=== PATIENT | male | born 1955 | race Caucasian/White ===

== ENCOUNTER 2016-03-18 09:45 | Outpatient (CLI) | payer BC | END 2016-03-18 09:46 | disposition home or self-care (01) | DX: I48.91 Unspecified atrial fibrillation (principal); E11.9 Type 2 diabetes mellitus without complications; E87.1 Hypo-osmolality and hyponatremia; E55.9 Vitamin D deficiency, unspecified; E29.1 Testicular hypofunction; D64.9 Anemia, unspecified; E78.5 Hyperlipidemia, unspecified; I10 Essential (primary) hypertension; E03.9 Hypothyroidism, unspecified; Z12.5 Encounter for screening for malignant neoplasm of prostate ==

== ENCOUNTER 2016-05-21 17:11 | Outpatient (CLI) | payer BC | END 2016-05-21 17:12 | disposition home or self-care (01) | DX: M79.604 Pain in right leg (principal) ==

== ENCOUNTER 2016-06-29 14:05 | Outpatient (CLI) | payer BC | END 2016-06-29 14:06 | disposition home or self-care (01) | DX: G47.33 Obstructive sleep apnea (adult) (pediatric) (principal) ==

== ENCOUNTER 2016-07-31 22:21 | Outpatient (CLI) | payer BC | END 2016-07-31 22:22 | disposition home or self-care (01) | LOC: SC 22:21 | PROVIDERS: ATTEND Internal Medicine Pulmonary Disease | DX: G47.33 Obstructive sleep apnea (adult) (pediatric) (principal); G47.61 Periodic limb movement disorder; Z68.43 Body mass index [BMI] 50.0-59.9, adult | CPT/HCPCS: 95811 ==

== ENCOUNTER 2016-08-18 13:33 | Outpatient (CLI) | payer BC | END 2016-08-18 13:34 | disposition home or self-care (01) | LOC: SC 13:33 | PROVIDERS: ATTEND Internal Medicine Pulmonary Disease | DX: Z53.9 Procedure and treatment not carried out, unspecified reason (principal) ==

== ENCOUNTER 2016-09-07 10:30 | Outpatient (CLI) | payer BC | END 2016-09-07 10:31 | disposition home or self-care (01) | DX: G47.33 Obstructive sleep apnea (adult) (pediatric) (principal) ==

== ENCOUNTER 2016-09-15 12:53 | Outpatient (CLI) | payer BC ==
[2016-09-15 19:01] LABS: ALBUMIN/GLOBULIN RATIO 1.1 (1.0-2.2); BILIRUBIN,TOTAL 1.1 mg/dL (0.2-1.0); BUN - BLOOD UREA NITROGEN 9 mg/dL (6-20); CALCIUM 9.3 mg/dL (8.5-10.3); CARBON DIOXIDE - CO2 29 mmol/L (21-32); CHLORIDE 98 mmol/L (101-111); CHOL/HDL RATIO 3.4 (<5.0); CHOLESTEROL 160 mg/dL; GFR - MDRD 76 (>89); GLUCOSE 199 mg/dL (70-100); HDL CHOLESTEROL 47 mg/dL; LDL/HDL RATIO 1.2 (<3.6); POTASSIUM 4.5 mmol/L (3.5-5.0); SODIUM 134 mmol/L (135-145); TOTAL PROTEIN 7.8 g/dL (6.7-8.2); TRIGLYCERIDES 283 mg/dL; VLDL CHOLESTEROL 57 mg/dL
[2016-09-15 19:29] LABS: BASOPHILS # (AUTO) 0.1 10^3/uL (0.0-0.1); BASOPHILS % (AUTO) 0.8 %; EOSINOPHILS # (AUTO) 0.1 10^3/uL (0.0-0.7); EOSINOPHILS % (AUTO) 0.8 %; HCT - HEMATOCRIT 55.8 % (42.0-52.0); HGB - HEMOGLOBIN 17.9 g/dL (14.0-18.0); LYMPHOCYTES # (AUTO) 2.1 10^3/uL (1.5-3.5); LYMPHOCYTES % (AUTO) 25.2 %; MEAN CORPUSCULAR HEMOGLOBIN 27.4 pg (27.0-31.0); MEAN CORPUSCULAR VOLUME 85.5 fL (80.0-94.0); MEAN PLATELET VOLUME 7.8 fL (7.4-11.4); MONOCYTES # (AUTO) 0.7 10^3/uL (0.0-1.0); MONOCYTES % (AUTO) 8.1 %; NEUTROPHILS # (AUTO) 5.5 10^3/uL (1.5-6.6); NEUTROPHILS % (AUTO) 65.1 %; NUCLEATED RED BLOOD CELLS AUTO 0.1 /100WBC; RED BLOOD COUNT 6.53 10^6/uL (4.70-6.10); RED CELL DISTRIBUTION WIDTH 16.1 % (12.0-15.0); UNCORRECTED WHITE BLOOD COUNT 8.5 x10^3/uL; WHITE BLOOD COUNT 8.5 x10^3/uL (4.8-10.8)
[2016-09-15 19:32] LABS: BILIRUBIN,URINE NEGATIVE (NEGATIVE); PH,URINE 5.5 PH (5.0-7.5)
[2016-09-15 19:43] LABS: UA w/ MICROSCOPIC CHARGE YES
[2016-09-15 19:47] LABS: INR 1.2 (0.8-1.2); PT - PROTHROMBIN TIME 13.4 secs (9.9-12.6)
[2016-09-15 20:38] LABS: PARTIAL THROMBOPLASTIN TIME 49.1 secs (24.9-33.3)
[2016-09-15 20:42] LABS: UR CULTURE IF IND NOT INDICATED; WBC,URINE 0-3 /HPF (0-3)
[2016-09-15 21:11] LABS: HEMOGLOBIN A1C 1.15 g/dL
== END 2016-09-15 12:54 | disposition home or self-care (01) ==
LOC: LAB.F 12:53
PROVIDERS: ATTEND Orthopaedic Surgery
DX: Z01.818 Encounter for other preprocedural examination (principal); N39.0 Urinary tract infection, site not specified; R73.09 Other abnormal glucose; Z79.4 Long term (current) use of insulin; E11.9 Type 2 diabetes mellitus without complications; D64.9 Anemia, unspecified; E78.5 Hyperlipidemia, unspecified; I10 Essential (primary) hypertension
CPT/HCPCS: 36415; 80053; 80061; 81001; 81003; 83036; 84443; 85025; 85610; 85730; 87086

== ENCOUNTER 2016-12-28 15:08 | Outpatient (CLI) | payer BC ==
[2016-12-28 17:43] LABS: BASOPHILS % (AUTO) 0.5 %; EOSINOPHILS # (AUTO) 0.1 10^3/uL (0.0-0.7); EOSINOPHILS % (AUTO) 0.6 %; HCT - HEMATOCRIT 56.8 % (42.0-52.0); HGB - HEMOGLOBIN 18.2 g/dL (14.0-18.0); LYMPHOCYTES # (AUTO) 2.2 10^3/uL (1.5-3.5); LYMPHOCYTES % (AUTO) 25.3 %; MEAN CORPUSCULAR HEMOGLOBIN 27.5 pg (27.0-31.0); MEAN CORPUSCULAR HGB CONC 32.1 g/dL (32.0-36.0); MEAN CORPUSCULAR VOLUME 85.8 fL (80.0-94.0); MEAN PLATELET VOLUME 7.9 fL (7.4-11.4); MONOCYTES # (AUTO) 0.9 10^3/uL (0.0-1.0); MONOCYTES % (AUTO) 9.7 %; NEUTROPHILS # (AUTO) 5.7 10^3/uL (1.5-6.6); NEUTROPHILS % (AUTO) 63.9 %; NUCLEATED RED BLOOD CELLS AUTO 0.1 /100WBC; RED BLOOD COUNT 6.62 10^6/uL (4.70-6.10); RED CELL DISTRIBUTION WIDTH 15.9 % (12.0-15.0); UNCORRECTED WHITE BLOOD COUNT 8.9 x10^3/uL; WHITE BLOOD COUNT 8.9 x10^3/uL (4.8-10.8)
[2016-12-28 18:04] LABS: HEMOGLOBIN A1C 1.14 g/dL
[2016-12-28 18:09] LABS: ALBUMIN/GLOBULIN RATIO 1.1 (1.0-2.2); BILIRUBIN,TOTAL 1.1 mg/dL (0.2-1.0); BUN - BLOOD UREA NITROGEN 12 mg/dL (6-20); CALCIUM 9.2 mg/dL (8.5-10.3); CARBON DIOXIDE - CO2 25 mmol/L (21-32); CHLORIDE 99 mmol/L (101-111); CHOL/HDL RATIO 3.6 (<5.0); CHOLESTEROL 150 mg/dL; GFR - MDRD 76 (>89); GLUCOSE 171 mg/dL (70-100); HDL CHOLESTEROL 42 mg/dL; LDL/HDL RATIO 1.2 (<3.6); POTASSIUM 4.2 mmol/L (3.5-5.0); SODIUM 133 mmol/L (135-145); TOTAL PROTEIN 8.2 g/dL (6.7-8.2); TRIGLYCERIDES 292 mg/dL; VLDL CHOLESTEROL 58 mg/dL
[2017-01-03 03:12] LABS: TEST RESULT REPORT
== END 2016-12-28 15:09 | disposition home or self-care (01) ==
LOC: LAB.F 15:08
PROVIDERS: ATTEND Physician Assistant Medical
DX: Z00.00 Encounter for general adult medical examination without abnormal findings (principal); I50.9 Heart failure, unspecified; E78.5 Hyperlipidemia, unspecified; E11.21 Type 2 diabetes mellitus with diabetic nephropathy; Z12.5 Encounter for screening for malignant neoplasm of prostate; E29.1 Testicular hypofunction; D64.9 Anemia, unspecified
CPT/HCPCS: 36415; 80053; 80061; 81599; 82043; 82570; 83036; 83880; 84153; 84403; 85025

== ENCOUNTER 2017-09-10 08:00 | Outpatient (CLI) | payer BC, OTHER | END 2017-09-10 08:01 | disposition home or self-care (01) | LOC: LAB.R 08:00 | PROVIDERS: ATTEND Podiatrist | DX: E11.622 Type 2 diabetes mellitus with other skin ulcer (principal) | CPT/HCPCS: 87070; 87077; 87181; 87205 ==

== ENCOUNTER 2017-10-06 08:00 | Outpatient (CLI) | payer OTHER ==
[2017-10-06 17:10] LABS: MUDS CUTOFF CONCENTRATIONS CUTOFF CONC BELOW:
[2017-10-06 17:35] LABS: AMPHETAMINE SCREEN,URINE NEGATIVE (NEGATIVE); BENZODIAZEPINES SCREEN, URINE NEGATIVE (NEGATIVE); COCAINE SCREEN URINE NEGATIVE (NEGATIVE); METHADONE SCREEN, URINE NEGATIVE (NEGATIVE); METHAMPHETAMINES SCREEN, URINE NEGATIVE (NEGATIVE); OPIATE SCREEN, URINE POSITIVE (NEGATIVE); TRICYCLIC ANTIDEPRESSANT,URINE NEGATIVE (NEGATIVE)
[2017-10-06 17:36] LABS: OXYCODONE SCREEN, URINE POSITIVE (NEGATIVE); PROPOXYPHENE SCREEN, URINE NEGATIVE (NEGATIVE)
== END 2017-10-06 08:01 | disposition home or self-care (01) ==
LOC: LAB.R 08:00
PROVIDERS: ATTEND Physician Assistant Medical
DX: G89.29 Other chronic pain (principal)
CPT/HCPCS: 80306

== ENCOUNTER 2018-09-07 12:57 | Outpatient (CLI) | payer BC ==
[2018-09-07 17:22] LABS: BASOPHILS % (AUTO) 0.5 %; EOSINOPHILS # (AUTO) 0.1 10^3/uL (0.0-0.7); EOSINOPHILS % (AUTO) 1.5 %; HGB - HEMOGLOBIN 15.6 g/dL (14.0-18.0); LYMPHOCYTES # (AUTO) 2.2 10^3/uL (1.5-3.5); LYMPHOCYTES % (AUTO) 27.2 %; MEAN CORPUSCULAR HEMOGLOBIN 28.8 pg (27.0-31.0); MEAN CORPUSCULAR HGB CONC 32.3 g/dL (32.0-36.0); MEAN CORPUSCULAR VOLUME 89.1 fL (80.0-94.0); MEAN PLATELET VOLUME 9.7 fL (7.4-11.4); MONOCYTES # (AUTO) 0.8 10^3/uL (0.0-1.0); MONOCYTES % (AUTO) 9.3 %; NEUTROPHILS # (AUTO) 4.9 10^3/uL (1.5-6.6); NEUTROPHILS % (AUTO) 60.9 %; PLT - PLATELET COUNT 244 10^3/uL (130-450); RED BLOOD COUNT 5.42 10^6/uL (4.70-6.10); RED CELL DISTRIBUTION WIDTH 13.8 % (12.0-15.0); WHITE BLOOD COUNT 8.1 x10^3/uL (4.8-10.8)
[2018-09-07 17:34] LABS: ALBUMIN 3.9 g/dL (3.2-5.5); CALCIUM 9.2 mg/dL (8.5-10.3); CREATININE 0.7 mg/dL (0.6-1.2); CRP - C-REACTIVE PROTEIN 1.8 mg/dL (0-1.0); PHOSPHORUS 3.6 mg/dL (2.5-4.6); TOTAL PROTEIN 7.7 g/dL (6.7-8.2)
== END 2018-09-07 12:58 | disposition home or self-care (01) ==
LOC: LAB.S 12:57
PROVIDERS: ATTEND Orthopaedic Surgery Foot and Ankle Surgery
DX: Z01.818 Encounter for other preprocedural examination (principal); M79.674 Pain in right toe(s)
CPT/HCPCS: 36415; 80053; 80069; 85025; 85651; 86140

== ENCOUNTER 2020-10-23 11:00 | Outpatient (CLI) | payer OTHER | END 2020-10-23 23:59 | disposition home or self-care (01) | LOC: LAB 11:00 | PROVIDERS: ATTEND Podiatrist | DX: E11.622 Type 2 diabetes mellitus with other skin ulcer (principal) | CPT/HCPCS: 87070; 87077; 87181; 87205 ==

== ENCOUNTER 2021-04-21 08:00 | Outpatient (CLI) | payer OTHER | END 2021-04-21 23:59 | LOC: LAB 08:00 | PROVIDERS: ATTEND Internal Medicine | DX: L03.031 Cellulitis of right toe (principal) | CPT/HCPCS: 87070; 87077; 87181; 87205 ==

== ENCOUNTER 2021-05-07 08:00 | Outpatient (CLI) | payer OTHER ==
--- NOTE | 2021-05-08 01:51 | XRAY Report ---
PROCEDURE: Foot 3 View RT INDICATIONS: OSTEOMYELITIS TECHNIQUE: 3 views of the foot were acquired. COMPARISON: Right foot radiographs 07/02/2009 FINDINGS: Bones: No acute fractures or dislocations. No suspicious bony lesions. No focal cortical destructi on is seen to suggest osteomyelitis. Moderate hallux valgus is seen with degenerative changes of the first metatarsophalangeal joint. There is also mild valgus angulation of the first interphalangeal brock int. Degenerative changes are seen throughout the interphalangeal joints of the toes. A posterior timbo caneal enthesophyte is seen. Findings are significantly worse when compared to a remote prior study f rom 2009. Soft tissues: Skin irregularity at the medial aspect of the foot adjacent to the first metatarsophal angeal joint is consistent with a soft tissue ulcer. Mild diffuse soft tissue edema is seen in the fo refoot. IMPRESSION: Soft tissue ulcer at the medial aspect of the first metatarsophalangeal joint without radiographic si gns of osteomyelitis. If there is continued clinical concern, MRI may be obtained for further evaluat ion. Reviewed by: Kofi Bartholomew MD on 05/08/2021 1:51 AM PST Approved by: Kofi Bartholomew MD on 05/08/2021 1:51 AM PST Station ID: [id number]
== END 2021-05-07 23:59 | disposition home or self-care (01) ==
LOC: DI.S 08:00
PROVIDERS: ATTEND Family Medicine
DX: E11.621 Type 2 diabetes mellitus with foot ulcer (principal)

== ENCOUNTER 2021-05-07 18:12 | Outpatient (CLI) | payer OTHER ==
[2021-05-07 20:07] LABS: BASOPHILS % (AUTO) 0.3 %; EOSINOPHILS % (AUTO) 0.3 %; HCT - HEMATOCRIT 37.3 % (42.0-52.0); HGB - HEMOGLOBIN 11.8 g/dL (14.0-18.0); LYMPHOCYTES # (AUTO) 1.2 10^3/uL (1.5-3.5); LYMPHOCYTES % (AUTO) 15.4 %; MEAN CORPUSCULAR HEMOGLOBIN 26.5 pg (27.0-31.0); MEAN CORPUSCULAR HGB CONC 31.6 g/dL (32.0-36.0); MEAN CORPUSCULAR VOLUME 83.8 fL (80.0-94.0); MEAN PLATELET VOLUME 8.7 fL (7.4-11.4); MONOCYTES # (AUTO) 0.7 10^3/uL (0.0-1.0); MONOCYTES % (AUTO) 8.4 %; NEUTROPHILS % (AUTO) 75.1 %; PLT - PLATELET COUNT 309 10^3/uL (130-450); RED BLOOD COUNT 4.45 10^6/uL (4.70-6.10)
== END 2021-05-07 18:13 | disposition home or self-care (01) ==
LOC: LAB.S 18:12
PROVIDERS: ATTEND Family Medicine
DX: E11.621 Type 2 diabetes mellitus with foot ulcer (principal); L08.9 Local infection of the skin and subcutaneous tissue, unspecified
CPT/HCPCS: 36415; 80053; 83880; 85025; 85651; 86140

== ENCOUNTER 2021-05-20 15:29 | Outpatient (CLI) | payer OTHER ==
[2021-05-20 15:39] LABS: BASOPHILS # (AUTO) 0.1 10^3/uL (0.0-0.1); BASOPHILS % (AUTO) 0.7 %; EOSINOPHILS # (AUTO) 0.1 10^3/uL (0.0-0.7); EOSINOPHILS % (AUTO) 1.3 %; HCT - HEMATOCRIT 36.2 % (42.0-52.0); HGB - HEMOGLOBIN 11.5 g/dL (14.0-18.0); LYMPHOCYTES # (AUTO) 1.1 10^3/uL (1.5-3.5); LYMPHOCYTES % (AUTO) 15.7 %; MEAN CORPUSCULAR HEMOGLOBIN 26.6 pg (27.0-31.0); MEAN CORPUSCULAR HGB CONC 31.8 g/dL (32.0-36.0); MEAN CORPUSCULAR VOLUME 83.8 fL (80.0-94.0); MEAN PLATELET VOLUME 8.1 fL (7.4-11.4); MONOCYTES # (AUTO) 0.9 10^3/uL (0.0-1.0); MONOCYTES % (AUTO) 12.8 %; NEUTROPHILS # (AUTO) 4.8 10^3/uL (1.5-6.6); NEUTROPHILS % (AUTO) 68.5 %; PLT - PLATELET COUNT 269 10^3/uL (130-450); RED BLOOD COUNT 4.32 10^6/uL (4.70-6.10); RED CELL DISTRIBUTION WIDTH 17.8 % (12.0-15.0); WHITE BLOOD COUNT 7.1 x10^3/uL (4.8-10.8)
[2021-05-20 16:02] LABS: ALBUMIN 2.8 g/dL (3.2-5.5); ALBUMIN/GLOBULIN RATIO 0.7 (1.0-2.2); BILIRUBIN,TOTAL 0.8 mg/dL (0.2-1.0); CALCIUM 8.4 mg/dL (8.5-10.3); CREATININE 0.6 mg/dL (0.6-1.2); CRP - C-REACTIVE PROTEIN 9.9 mg/dL (0-1.0); POTASSIUM 4.9 mmol/L (3.5-5.0); TOTAL PROTEIN 7.1 g/dL (6.7-8.2)
== END 2021-05-20 15:30 | disposition home or self-care (01) ==
LOC: LAB.R 15:29
PROVIDERS: ATTEND Internal Medicine Infectious Disease
DX: M86.9 Osteomyelitis, unspecified (principal)
CPT/HCPCS: 80053; 85025; 86140

== ENCOUNTER 2021-06-03 14:54 | Outpatient (CLI) | payer OTHER ==
[2021-06-03 15:24] LABS: BASOPHILS % (AUTO) 0.5 %; EOSINOPHILS # (AUTO) 0.1 10^3/uL (0.0-0.7); EOSINOPHILS % (AUTO) 0.8 %; HCT - HEMATOCRIT 35.5 % (42.0-52.0); HGB - HEMOGLOBIN 11.4 g/dL (14.0-18.0); LYMPHOCYTES # (AUTO) 0.7 10^3/uL (1.5-3.5); LYMPHOCYTES % (AUTO) 11.6 %; MEAN CORPUSCULAR HEMOGLOBIN 26.6 pg (27.0-31.0); MEAN CORPUSCULAR HGB CONC 32.1 g/dL (32.0-36.0); MEAN CORPUSCULAR VOLUME 82.9 fL (80.0-94.0); MEAN PLATELET VOLUME 8.3 fL (7.4-11.4); MONOCYTES # (AUTO) 0.7 10^3/uL (0.0-1.0); MONOCYTES % (AUTO) 11.3 %; NEUTROPHILS # (AUTO) 4.5 10^3/uL (1.5-6.6); NEUTROPHILS % (AUTO) 75.1 %; PLT - PLATELET COUNT 302 10^3/uL (130-450); RED BLOOD COUNT 4.28 10^6/uL (4.70-6.10); RED CELL DISTRIBUTION WIDTH 18.6 % (12.0-15.0)
[2021-06-03 16:15] LABS: ALBUMIN 2.8 g/dL (3.2-5.5); ALBUMIN/GLOBULIN RATIO 0.7 (1.0-2.2); BILIRUBIN,TOTAL 0.8 mg/dL (0.2-1.0); CALCIUM 8.3 mg/dL (8.5-10.3); CREATININE 0.7 mg/dL (0.6-1.2); CRP - C-REACTIVE PROTEIN 3.6 mg/dL (0-1.0); POTASSIUM 4.8 mmol/L (3.5-5.0)
== END 2021-06-03 14:55 | disposition home or self-care (01) ==
LOC: LAB.R 14:54
PROVIDERS: ATTEND Internal Medicine Infectious Disease
DX: M86.9 Osteomyelitis, unspecified (principal)
CPT/HCPCS: 80053; 85025; 86140

== ENCOUNTER 2021-06-10 08:00 | Outpatient (CLI) | payer OTHER ==
[2021-06-10 16:39] LABS: BASOPHILS % (AUTO) 0.4 %; EOSINOPHILS # (AUTO) 0.1 10^3/uL (0.0-0.7); EOSINOPHILS % (AUTO) 0.9 %; HCT - HEMATOCRIT 35.5 % (42.0-52.0); HGB - HEMOGLOBIN 11.2 g/dL (14.0-18.0); LYMPHOCYTES # (AUTO) 0.6 10^3/uL (1.5-3.5); MEAN CORPUSCULAR HEMOGLOBIN 26.5 pg (27.0-31.0); MEAN CORPUSCULAR HGB CONC 31.5 g/dL (32.0-36.0); MEAN CORPUSCULAR VOLUME 84.1 fL (80.0-94.0); MEAN PLATELET VOLUME 9.1 fL (7.4-11.4); MONOCYTES # (AUTO) 0.9 10^3/uL (0.0-1.0); MONOCYTES % (AUTO) 11.1 %; NEUTROPHILS # (AUTO) 6.2 10^3/uL (1.5-6.6); NEUTROPHILS % (AUTO) 78.8 %; PLT - PLATELET COUNT 264 10^3/uL (130-450); RED BLOOD COUNT 4.22 10^6/uL (4.70-6.10); RED CELL DISTRIBUTION WIDTH 18.7 % (12.0-15.0); WHITE BLOOD COUNT 7.9 x10^3/uL (4.8-10.8)
[2021-06-10 16:54] LABS: ALBUMIN 2.7 g/dL (3.2-5.5); ALBUMIN/GLOBULIN RATIO 0.6 (1.0-2.2); BILIRUBIN,TOTAL 1.6 mg/dL (0.2-1.0); CALCIUM 8.2 mg/dL (8.5-10.3); CREATININE 0.6 mg/dL (0.6-1.2); CRP - C-REACTIVE PROTEIN 11.1 mg/dL (0-1.0); POTASSIUM 4.9 mmol/L (3.5-5.0)
== END 2021-06-10 23:59 | disposition home or self-care (01) ==
LOC: LAB.R 08:00
PROVIDERS: ATTEND Internal Medicine Infectious Disease
DX: M86.9 Osteomyelitis, unspecified (principal)
CPT/HCPCS: 80053; 85025; 86140

== ENCOUNTER 2021-06-17 08:00 | Outpatient (CLI) | payer OTHER ==
[2021-06-17 17:13] LABS: BASOPHILS % (AUTO) 0.6 %; EOSINOPHILS % (AUTO) 0.6 %; HGB - HEMOGLOBIN 11.3 g/dL (14.0-18.0); LYMPHOCYTES # (AUTO) 1.1 10^3/uL (1.5-3.5); LYMPHOCYTES % (AUTO) 15.8 %; MEAN CORPUSCULAR HEMOGLOBIN 27.1 pg (27.0-31.0); MEAN CORPUSCULAR HGB CONC 32.3 g/dL (32.0-36.0); MEAN CORPUSCULAR VOLUME 83.9 fL (80.0-94.0); MONOCYTES # (AUTO) 0.7 10^3/uL (0.0-1.0); MONOCYTES % (AUTO) 10.6 %; NEUTROPHILS # (AUTO) 4.8 10^3/uL (1.5-6.6); NEUTROPHILS % (AUTO) 71.8 %; PLT - PLATELET COUNT 329 10^3/uL (130-450); RED BLOOD COUNT 4.17 10^6/uL (4.70-6.10); RED CELL DISTRIBUTION WIDTH 18.7 % (12.0-15.0); WHITE BLOOD COUNT 6.7 x10^3/uL (4.8-10.8)
[2021-06-17 18:55] LABS: ALBUMIN 2.7 g/dL (3.2-5.5); ALBUMIN/GLOBULIN RATIO 0.6 (1.0-2.2); BILIRUBIN,TOTAL 0.8 mg/dL (0.2-1.0); CALCIUM 8.4 mg/dL (8.5-10.3); CREATININE 0.6 mg/dL (0.6-1.2); CRP - C-REACTIVE PROTEIN 7.2 mg/dL (0-1.0); POTASSIUM 4.8 mmol/L (3.5-5.0); TOTAL PROTEIN 7.3 g/dL (6.7-8.2)
== END 2021-06-17 08:01 | disposition home or self-care (01) ==
LOC: LAB.R 08:00
PROVIDERS: ATTEND Internal Medicine Infectious Disease
DX: M86.9 Osteomyelitis, unspecified (principal)
CPT/HCPCS: 80053; 85025; 86140

== ENCOUNTER 2021-06-24 13:44 | Outpatient (CLI) | payer OTHER ==
[2021-06-24 13:52] LABS: BASOPHILS % (AUTO) 0.6 %; EOSINOPHILS # (AUTO) 0.1 10^3/uL (0.0-0.7); EOSINOPHILS % (AUTO) 1.1 %; HCT - HEMATOCRIT 34.2 % (42.0-52.0); HGB - HEMOGLOBIN 10.6 g/dL (14.0-18.0); LYMPHOCYTES # (AUTO) 1.2 10^3/uL (1.5-3.5); LYMPHOCYTES % (AUTO) 17.2 %; MEAN CORPUSCULAR HEMOGLOBIN 26.1 pg (27.0-31.0); MEAN CORPUSCULAR VOLUME 84.2 fL (80.0-94.0); MEAN PLATELET VOLUME 8.4 fL (7.4-11.4); MONOCYTES # (AUTO) 0.9 10^3/uL (0.0-1.0); MONOCYTES % (AUTO) 12.9 %; NEUTROPHILS # (AUTO) 4.9 10^3/uL (1.5-6.6); NEUTROPHILS % (AUTO) 67.1 %; PLT - PLATELET COUNT 353 10^3/uL (130-450); RED BLOOD COUNT 4.06 10^6/uL (4.70-6.10); RED CELL DISTRIBUTION WIDTH 18.1 % (12.0-15.0); WHITE BLOOD COUNT 7.2 x10^3/uL (4.8-10.8)
[2021-06-24 14:13] LABS: ALBUMIN 2.7 g/dL (3.2-5.5); ALBUMIN/GLOBULIN RATIO 0.6 (1.0-2.2); BILIRUBIN,TOTAL 0.8 mg/dL (0.2-1.0); CREATININE 0.6 mg/dL (0.6-1.2); CRP - C-REACTIVE PROTEIN 7.2 mg/dL (0-1.0); POTASSIUM 4.7 mmol/L (3.5-5.0); TOTAL PROTEIN 7.1 g/dL (6.7-8.2)
== END 2021-06-24 13:45 | disposition home or self-care (01) ==
LOC: LAB.R 13:44
PROVIDERS: ATTEND Internal Medicine Infectious Disease
DX: M86.9 Osteomyelitis, unspecified (principal)
CPT/HCPCS: 80053; 85025; 86140

== ENCOUNTER 2021-07-19 14:11 | Outpatient (CLI) | payer OTHER ==
[2021-07-19 18:17] LABS: BASOPHILS % (AUTO) 0.3 %; EOSINOPHILS % (AUTO) 0.2 %; HCT - HEMATOCRIT 33.9 % (42.0-52.0); HGB - HEMOGLOBIN 10.8 g/dL (14.0-18.0); LYMPHOCYTES # (AUTO) 0.9 10^3/uL (1.5-3.5); LYMPHOCYTES % (AUTO) 8.9 %; MEAN CORPUSCULAR HGB CONC 31.9 g/dL (32.0-36.0); MEAN CORPUSCULAR VOLUME 81.5 fL (80.0-94.0); MONOCYTES # (AUTO) 1.1 10^3/uL (0.0-1.0); MONOCYTES % (AUTO) 10.2 %; NEUTROPHILS # (AUTO) 8.3 10^3/uL (1.5-6.6); NEUTROPHILS % (AUTO) 79.6 %; PLT - PLATELET COUNT 265 10^3/uL (130-450); RED BLOOD COUNT 4.16 10^6/uL (4.70-6.10); RED CELL DISTRIBUTION WIDTH 16.7 % (12.0-15.0); WHITE BLOOD COUNT 10.4 x10^3/uL (4.8-10.8)
[2021-07-19 18:45] LABS: ALBUMIN 2.6 g/dL (3.2-5.5); ALBUMIN/GLOBULIN RATIO 0.5 (1.0-2.2); BILIRUBIN,TOTAL 1.1 mg/dL (0.2-1.0); CALCIUM 8.6 mg/dL (8.5-10.3); CREATININE 0.8 mg/dL (0.6-1.2); CRP - C-REACTIVE PROTEIN 19.3 mg/dL (0-1.0); TOTAL PROTEIN 7.7 g/dL (6.7-8.2)
== END 2021-07-19 14:12 | disposition home or self-care (01) ==
LOC: LAB.S 14:11
PROVIDERS: ATTEND Family Medicine
DX: L08.9 Local infection of the skin and subcutaneous tissue, unspecified (principal)
CPT/HCPCS: 36415; 80053; 85025; 86140

== ENCOUNTER 2021-08-20 16:18 | Emergency (ER) | payer OTHER ==
[2021-08-20] MEDS ORDERED: EPINEPHrine ABBOJECT 1 MG/10 ML SYRINGE IVP ONE (16:19)
--- NOTE | 2021-08-20 16:27 | ED Physician Documentation ---
PD HPI CPR - Stated complaint Stated Complaint: FOUND DOWN - History obtained from History obtained from: Family, EMS - History of Present Illness Timing - onset: How many minutes ago (50), Today Timing - onset during: Light activity Preceding symptoms: Dyspnea (son/family members were with patient and helping him from wheelchair into recliner at home, having just gotten back from PMD visit. Had recent discharge from medicine for edema and foot infection, with plan for BKA in near future. Was in hospital 10 days.), Other (patient was just standing up to trasnfer chair to recliner and said he was thirsty, got pale and then eyes rolled back and he collapsed, stopped breathing. Did not seem to express any pain (chest pain, headache, abd pain) per son. They started CPR and called EMS. EMS found patient in golden/agonal.) Recently seen: Admitted Witnessed: Arrest witnessed Fall: No fall Bystander CPR: Bystander CPR EMS findings: Unresponsive, Apneic, PEA Treatment INTERVIEWING CLERK: CPR, BVM, Intubated, Epi Advanced directive: No advanced directive Review of Systems Unable to obtain: Unresponsive, Other (info from son after Code.) Constitutional: denies: Fever Cardiac: denies: Chest pain / pressure Respiratory: reports: Dyspnea (chronic) GI: denies: Abdominal Pain, Vomiting Neurologic: denies: Headache PD PAST MEDICAL HISTORY - Past Medical History Cardiovascular: Congestive heart failure, Hypertension, Coronary artery disease, Peripheral Vascular Disease Respiratory: COPD Neuro: None Endocrine/Autoimmune: Type 2 diabetes - Present Medications Home Medications: Ambulatory Orders Medication Instructions Recorded Confirmed Beclomethasone Dipropionate 1 - 2 sprays INH BID 02/27/14 02/27/14 [Beconase Aq] Cholecalciferol (Vitamin D3) 1 cap PO DAILY 02/27/14 02/27/14 [Vitamin D3] Dabigatran Etexilate Mesylate 1 cap PO BID 02/27/14 02/27/14 [Pradaxa] Digoxin [Digox] 1 tab PO DAILY 02/27/14 02/27/14 Dofetilide [Tikosyn] 1 cap PO BID 02/27/14 02/27/14 Donepezil HCl [Aricept] 1 tab PO DAILY 02/27/14 02/27/14 Furosemide [Lasix] 1 tab PO DAILY 02/27/14 02/27/14 Gabapentin 1 cap PO BID 02/27/14 02/27/14 Insulin Glargine [Lantus] 50 units SQ BID 02/27/14 02/27/14 Insulin Lispro [Humalog] 1 - 150 units SQ DAILY 02/27/14 02/27/14 Metformin HCl [Glucophage Xr] 2 tab PO BID 02/27/14 02/27/14 Morphine Sulfate [Morphine Sulfate 15 mg PO BID 02/27/14 02/27/14 ER] Oxycodone HCl/Acetaminophen 1 each PO Q8HR PRN 02/27/14 02/27/14 [Endocet 10-325 mg Tablet] Salmeterol Xinafoate [Serevent 1 puffs INH BID 02/27/14 02/27/14 Diskus] Sulfamethoxazole/Trimethoprim 1 tab PO BID 02/27/14 02/27/14 [Bactrim Ds Tablet] Testosterone [Androgel] 20.25 mg TOP DAILY 02/27/14 02/27/14 Torsemide 6.7 mg PO DAILY 02/27/14 02/27/14 lisinopriL [Prinivil] 10 mg PO DAILY 02/27/14 02/27/14 - Living Situation Living Situation: reports: With family Living Arrangement: reports: At home PD ED PE NORMAL - General General: Other (CPR in progress with bagged ventilations via ETT. Symmetric lung sounds/expansion. ) - HEENT HEENT: Other (dusky purple color from neck up. ) - Cardiac Cardiac: Other (bedside U/S at pulse check showed no pulse and no cardiac activity. Pulses femoral were faintly felt with CPR. ) - Respiratory Respiratory: Other (wet sounds with bagged ventilations. Symmetric sounds though. ) - Derm Derm: No: Normal color - Extremities Extremities: Other (significant bilateral leg edema. Bandages on left lower foot and leg. ) Results - Vitals Vitals: Oxygen O2 Source Ambu bag PD MEDICAL DECISION MAKING - ED course Complexity details: considered differential (50 minute down time with CPR by time of ED arrival. On arrival, CPR continued as was just given Epi INTERVIEWING CLERK. At 2 minutes, pulse check showed asystole (with small pacer spikes but no ventricular response), no pulses, and bedside U/S showing no heart contractions. Code ended. ), d/w family (son/family arrived after Code called. Discussed symptoms and circumstances with him. Escorted son to bedside at his request. ) Departure - Departure Disposition: 20 Clinical Impression: Cardiac arrest Condition: Critical Record reviewed to determine appropriate education?: Yes
--- OUTSIDE RECORDS SUMMARY | 2021-08-21 16:34 | EXTERNAL MEDICAL SUMMARY RPT | Continuity of Care Document ---
:1955 Author Organization [facility] Address [address] [place] [address] Phone Allergies No information. Encounters No information. Functional Status No information. Immunizations No information. Medications No information. Problems No information. Procedures No information. Results/Labs test date author facility value unit interpret ation Result panel 1 (unknown) (no date) (unknown) (unknown) (no value) (units (un known) unknown) (unknown) (no date) (unknown) (unknown) No cells or (units (u nknown) organisms seen unknown) Result panel 2 (unknown) (no date) (unknown) (unknown) (no value) (units (un known) unknown) (unknown) (no date) (unknown) (unknown) No cells or (units (u nknown) organisms seen unknown) Result panel 3 (unknown) (no date) (unknown) (unknown) (no value) (units (un known) unknown) (unknown) (no date) (unknown) (unknown) No cells or (units (u nknown) organisms seen unknown) (unknown) (no date) (unknown) (unknown) No growth. (units (un known) unknown) Result panel 4 (unknown) (no date) (unknown) (unknown) (no value) (units (un known) unknown) (unknown) (no date) (unknown) (unknown) No cells or (units (u nknown) organisms seen unknown) (unknown) (no date) (unknown) (unknown) Very Early (units (un known) Growth: Culture unknown) too young for work-up reincubated Result panel 5 (unknown) (no (unknown) (unknown) (no value) (units (unk nown) date) unknown) (unknown) (no (unknown) (unknown) GenericComposite (units (unknown) date) [GNB^Gram unknown) negative bacilli] (unknown) (no (unknown) (unknown) GenericComposite (units (unknown) date) [GPC^Gram unknown) positive cocci] (unknown) (no (unknown) (unknown) Identification (units (unknown) date) and Sensitivity unknown) to Follow (unknown) (no (unknown) (unknown) No cells or (units (un known) date) organisms seen unknown) (unknown) (no (unknown) (unknown) SCANT (units (unkno wn) date) unknown) Result panel 6 (unknown) (no (unknown) (unknown) (no value) (units (unk nown) date) unknown) (unknown) (no (unknown) (unknown) GenericComposite (units (unknown) date) [GPC^Gram unknown) positive cocci] (unknown) (no (unknown) (unknown) Identification (units (unknown) date) and Sensitivity unknown) to Follow (unknown) (no (unknown) (unknown) No cells or (units (un known) date) organisms seen unknown) (unknown) (no (unknown) (unknown) SCANT (units (unkno wn) date) unknown) Result panel 7 (unknown) (no date) (unknown) (unknown) (no value) (units (un known) unknown) (unknown) (no date) (unknown) (unknown) No cells or (units (u nknown) organisms seen unknown) (unknown) (no date) (unknown) (unknown) Very Early (units (un known) Growth: Culture unknown) too young for work-up reincubated Result panel 8 (unknown) (no date) (unknown) (unknown) (no value) (units (un known) unknown) (unknown) (no date) (unknown) (unknown) No cells or (units (u nknown) organisms seen unknown) (unknown) (no date) (unknown) (unknown) Very Early (units (un known) Growth: Culture unknown) too young for work-up reincubated Result panel 9 (unknown) (no date) (unknown) (unknown) (no value) (units (un known) unknown) (unknown) (no date) (unknown) (unknown) No cells or (units (u nknown) organisms seen unknown) (unknown) (no date) (unknown) (unknown) No growth. (units (un known) unknown) (unknown) (no date) (unknown) (unknown) Very Early (units (un known) Growth: Culture unknown) too young for work-up reincubated Result panel 10 (unknown) (no date) (unknown) (unknown) (no value) (units (un known) unknown) (unknown) (no date) (unknown) (unknown) >=16 (units (unkn own) unknown) (unknown) (no date) (unknown) (unknown) <=0.12 (units (unkn own) unknown) (unknown) (no date) (unknown) (unknown) <=16 (units (unkn own) unknown) (unknown) (no date) (unknown) (unknown) <=2 (units (unkn own) unknown) (unknown) (no date) (unknown) (unknown) 1 (units (unkn own) unknown) (unknown) (no date) (unknown) (unknown) 2 (units (unkn own) unknown) (unknown) (no date) (unknown) (unknown) GenericCompos (units (unknown) ite[STRFAE^Ent unknown) erococcus faecalis] (unknown) (no date) (unknown) (unknown) No cells or (units (u nknown) organisms seen unknown) (unknown) (no date) (unknown) (unknown) SCANT (units (unkn own) unknown) (unknown) (no date) (unknown) (unknown) SYN-S (units (unkn own) unknown) Result panel 11 (unknown) (no (unknown) (unknown) (no value) (units (unk nown) date) unknown) (unknown) (no (unknown) (unknown) GenericComposite (units (unknown) date) [DI^Diphtheroids] unknown) (unknown) (no (unknown) (unknown) GenericComposite (units (unknown) date) [ENTSPP^Enterococ unknown) cus spp] (unknown) (no (unknown) (unknown) GenericComposite (units (unknown) date) [GNB^Gram unknown) negative bacilli] (unknown) (no (unknown) (unknown) Identification (units (unknown) date) and Sensitivity unknown) to Follow (unknown) (no (unknown) (unknown) LIGHT (units (unkno wn) date) unknown) (unknown) (no (unknown) (unknown) No Further (units (unk nown) date) Workup unknown) (unknown) (no (unknown) (unknown) No cells or (units (un known) date) organisms seen unknown) (unknown) (no (unknown) (unknown) No growth. (units (unk nown) date) unknown) (unknown) (no (unknown) (unknown) SCANT (units (unkno wn) date) unknown) Result panel 12 (unknown) (no (unknown) (unknown) (no value) (units (unk nown) date) unknown) (unknown) (no (unknown) (unknown) GenericComposite (units (unknown) date) [DI^Diphtheroids] unknown) (unknown) (no (unknown) (unknown) GenericComposite (units (unknown) date) [ENTSPP^Enterococ unknown) cus spp] (unknown) (no (unknown) (unknown) GenericComposite (units (unknown) date) [GNB^Gram unknown) negative bacilli] (unknown) (no (unknown) (unknown) Identification (units (unknown) date) and Sensitivity unknown) to Follow (unknown) (no (unknown) (unknown) LIGHT (units (unkno wn) date) unknown) (unknown) (no (unknown) (unknown) No Further (units (unk nown) date) Workup unknown) (unknown) (no (unknown) (unknown) No cells or (units (un known) date) organisms seen unknown) (unknown) (no (unknown) (unknown) No growth. (units (unk nown) date) unknown) (unknown) (no (unknown) (unknown) SCANT (units (unkno wn) date) unknown) Result panel 13 (unknown) (no date) (unknown) (unknown) (no value) (units (un known) unknown) (unknown) (no date) (unknown) (unknown) >=16 (units (unkn own) unknown) (unknown) (no date) (unknown) (unknown) <=0.12 (units (unkn own) unknown) (unknown) (no date) (unknown) (unknown) <=16 (units (unkn own) unknown) (unknown) (no date) (unknown) (unknown) <=2 (units (unkn own) unknown) (unknown) (no date) (unknown) (unknown) 1 (units (unkn own) unknown) (unknown) (no date) (unknown) (unknown) 2 (units (unkn own) unknown) (unknown) (no date) (unknown) (unknown) GenericCompos (units (unknown) ite[STRFAE^Ent unknown) erococcus faecalis] (unknown) (no date) (unknown) (unknown) No cells or (units (u nknown) organisms seen unknown) (unknown) (no date) (unknown) (unknown) SCANT (units (unkn own) unknown) (unknown) (no date) (unknown) (unknown) SYN-S (units (unkn own) unknown) (unknown) (no date) (unknown) (unknown) Test not (units (unkn own) performed unknown) Result panel 14 (unknown) (no (unknown) (unknown) (no value) (units (unk nown) date) unknown) (unknown) (no (unknown) (unknown) (no value) (units (unk nown) date) unknown) (unknown) (no (unknown) (unknown) >=16 (units (unkno wn) date) unknown) (unknown) (no (unknown) (unknown) <=0.12 (units (unkno wn) date) unknown) (unknown) (no (unknown) (unknown) <=1 (units (unkno wn) date) unknown) (unknown) (no (unknown) (unknown) <=16 (units (unkno wn) date) unknown) (unknown) (no (unknown) (unknown) <=2 (units (unkno wn) date) unknown) (unknown) (no (unknown) (unknown) 0.5 (units (unkno wn) date) unknown) (unknown) (no (unknown) (unknown) 1 (units (unkno wn) date) unknown) (unknown) (no (unknown) (unknown) 2 (units (unkno wn) date) unknown) (unknown) (no (unknown) (unknown) 32 (units (unkno wn) date) unknown) (unknown) (no (unknown) (unknown) GenericComposite (units (unknown) date) [DI^Diphtheroids] unknown) (unknown) (no (unknown) (unknown) GenericComposite (units (unknown) date) [PSEAER^Pseudomon unknown) as aeruginosa] (unknown) (no (unknown) (unknown) GenericComposite (units (unknown) date) [STRFAE^Enterococ unknown) cus faecalis] (unknown) (no (unknown) (unknown) Identification (units (unknown) date) and Sensitivity unknown) to Follow (unknown) (no (unknown) (unknown) LIGHT (units (unkno wn) date) unknown) (unknown) (no (unknown) (unknown) No Further (units (unk nown) date) Workup unknown) (unknown) (no (unknown) (unknown) No cells or (units (un known) date) organisms seen unknown) (unknown) (no (unknown) (unknown) No growth. (units (unk nown) date) unknown) (unknown) (no (unknown) (unknown) SCANT (units (unkno wn) date) unknown) (unknown) (no (unknown) (unknown) SYN-S (units (unkno wn) date) unknown) Result panel 15 (unknown) (no (unknown) (unknown) (no value) (units (unk nown) date) unknown) (unknown) (no (unknown) (unknown) (no value) (units (unk nown) date) unknown) (unknown) (no (unknown) (unknown) >=16 (units (unkno wn) date) unknown) (unknown) (no (unknown) (unknown) <=0.12 (units (unkno wn) date) unknown) (unknown) (no (unknown) (unknown) <=1 (units (unkno wn) date) unknown) (unknown) (no (unknown) (unknown) <=16 (units (unkno wn) date) unknown) (unknown) (no (unknown) (unknown) <=2 (units (unkno wn) date) unknown) (unknown) (no (unknown) (unknown) 0.5 (units (unkno wn) date) unknown) (unknown) (no (unknown) (unknown) 1 (units (unkno wn) date) unknown) (unknown) (no (unknown) (unknown) 2 (units (unkno wn) date) unknown) (unknown) (no (unknown) (unknown) 32 (units (unkno wn) date) unknown) (unknown) (no (unknown) (unknown) GenericComposite (units (unknown) date) [GPB^Gram unknown) positive bacilli] (unknown) (no (unknown) (unknown) GenericComposite (units (unknown) date) [PSEAER^Pseudomon unknown) as aeruginosa] (unknown) (no (unknown) (unknown) GenericComposite (units (unknown) date) [STRFAE^Enterococ unknown) cus faecalis] (unknown) (no (unknown) (unknown) Identification (units (unknown) date) and Sensitivity unknown) to Follow (unknown) (no (unknown) (unknown) LIGHT (units (unkno wn) date) unknown) (unknown) (no (unknown) (unknown) No cells or (units (un known) date) organisms seen unknown) (unknown) (no (unknown) (unknown) No growth. (units (unk nown) date) unknown) (unknown) (no (unknown) (unknown) SCANT (units (unkno wn) date) unknown) (unknown) (no (unknown) (unknown) SYN-S (units (unkno wn) date) unknown) Result panel 16 (unknown) (no (unknown) (unknown) (no value) (units (unk nown) date) unknown) (unknown) (no (unknown) (unknown) (no value) (units (unk nown) date) unknown) (unknown) (no (unknown) (unknown) (no value) (units (unk nown) date) unknown) (unknown) (no (unknown) (unknown) >=16 (units (unkno wn) date) unknown) (unknown) (no (unknown) (unknown) <=0.12 (units (unkno wn) date) unknown) (unknown) (no (unknown) (unknown) <=1 (units (unkno wn) date) unknown) (unknown) (no (unknown) (unknown) <=16 (units (unkno wn) date) unknown) (unknown) (no (unknown) (unknown) <=2 (units (unkno wn) date) unknown) (unknown) (no (unknown) (unknown) 0.5 (units (unkno wn) date) unknown) (unknown) (no (unknown) (unknown) 1 (units (unkno wn) date) unknown) (unknown) (no (unknown) (unknown) 2 (units (unkno wn) date) unknown) (unknown) (no (unknown) (unknown) 32 (units (unkno wn) date) unknown) (unknown) (no (unknown) (unknown) Corynebacterium (units (unknown) date) striatum is unknown) unclaimed for sensitivity on the (unknown) (no (unknown) (unknown) GenericComposite[ (units (unknown) date) CORSTR^Corynebacte unknown) rium striatum] (unknown) (no (unknown) (unknown) GenericComposite[ (units (unknown) date) PSEAER^Pseudomonas unknown) aeruginosa] (unknown) (no (unknown) (unknown) GenericComposite[ (units (unknown) date) STRFAE^Enterococcu unknown) s faecalis] (unknown) (no (unknown) (unknown) Isolate sent to [facility] (unknown) date) [facility] for [facility]) ID/Confirmation (unknown) (no (unknown) (unknown) LIGHT (units (unkno wn) date) unknown) (unknown) (no (unknown) (unknown) No cells or (units (un known) date) organisms seen unknown) (unknown) (no (unknown) (unknown) No growth. (units (unk nown) date) unknown) (unknown) (no (unknown) (unknown) Pseudomonas (units (un known) date) aeruginosa isolate unknown) sent to [facility] to confirm (unknown) (no (unknown) (unknown) SCANT (units (unkno wn) date) unknown) (unknown) (no (unknown) (unknown) SYN-S (units (unkno wn) date) unknown) (unknown) (no (unknown) (unknown) Vitek 2 panel. If (units (unknown) date) a sensitivity is unknown) requested, this organism (unknown) (no (unknown) (unknown) imipenem and (units (u nknown) date) meropenem unknown) antibiotic resistance. (unknown) (no (unknown) (unknown) will be sent out (units (unknown) date) to the reference unknown) lab. Result panel 17 (unknown) (no (unknown) (unknown) (no value) (units (unk nown) date) unknown) (unknown) (no (unknown) (unknown) (no value) (units (unk nown) date) unknown) (unknown) (no (unknown) (unknown) (no value) (units (unk nown) date) unknown) (unknown) (no (unknown) (unknown) >=16 (units (unkno wn) date) unknown) (unknown) (no (unknown) (unknown) <=0.12 (units (unkno wn) date) unknown) (unknown) (no (unknown) (unknown) <=1 (units (unkno wn) date) unknown) (unknown) (no (unknown) (unknown) <=16 (units (unkno wn) date) unknown) (unknown) (no (unknown) (unknown) <=2 (units (unkno wn) date) unknown) (unknown) (no (unknown) (unknown) 0.5 (units (unkno wn) date) unknown) (unknown) (no (unknown) (unknown) 1 (units (unkno wn) date) unknown) (unknown) (no (unknown) (unknown) 2 (units (unkno wn) date) unknown) (unknown) (no (unknown) (unknown) 32 (units (unkno wn) date) unknown) (unknown) (no (unknown) (unknown) Corynebacterium (units (unknown) date) striatum is unknown) unclaimed for sensitivity on the (unknown) (no (unknown) (unknown) GenericComposite[ (units (unknown) date) CORSTR^Corynebacte unknown) rium striatum] (unknown) (no (unknown) (unknown) GenericComposite[ (units (unknown) date) PSEAER^Pseudomonas unknown) aeruginosa] (unknown) (no (unknown) (unknown) GenericComposite[ (units (unknown) date) STRFAE^Enterococcu unknown) s faecalis] (unknown) (no (unknown) (unknown) Isolate sent to (units (unknown) date) [facility] for unknown) ID/Confirmation (unknown) (no (unknown) (unknown) LIGHT (units (unkno wn) date) unknown) (unknown) (no (unknown) (unknown) No cells or (units (un known) date) organisms seen unknown) (unknown) (no (unknown) (unknown) No growth. (units (unk nown) date) unknown) (unknown) (no (unknown) (unknown) Pseudomonas (units (un known) date) aeruginosa isolate unknown) sent to state to confirm (unknown) (no (unknown) (unknown) SCANT (units (unkno wn) date) unknown) (unknown) (no (unknown) (unknown) SYN-S (units (unkno wn) date) unknown) (unknown) (no (unknown) (unknown) Vitek 2 panel. If (units (unknown) date) a sensitivity is unknown) requested, this organism (unknown) (no (unknown) (unknown) imipenem and (units (u nknown) date) meropenem unknown) antibiotic resistance. (unknown) (no (unknown) (unknown) will be sent out (units (unknown) date) to the reference unknown) lab. Result panel 18 (unknown) (no (unknown) (unknown) (no value) (units (unk nown) date) unknown) (unknown) (no (unknown) (unknown) (no value) (units (unk nown) date) unknown) (unknown) (no (unknown) (unknown) (no value) (units (unk nown) date) unknown) (unknown) (no (unknown) (unknown) >=16 (units (unkno wn) date) unknown) (unknown) (no (unknown) (unknown) <=0.12 (units (unkno wn) date) unknown) (unknown) (no (unknown) (unknown) <=1 (units (unkno wn) date) unknown) (unknown) (no (unknown) (unknown) <=16 (units (unkno wn) date) unknown) (unknown) (no (unknown) (unknown) <=2 (units (unkno wn) date) unknown) (unknown) (no (unknown) (unknown) 0.5 (units (unkno wn) date) unknown) (unknown) (no (unknown) (unknown) 1 (units (unkno wn) date) unknown) (unknown) (no (unknown) (unknown) 2 (units (unkno wn) date) unknown) (unknown) (no (unknown) (unknown) 32 (units (unkno wn) date) unknown) (unknown) (no (unknown) (unknown) Corynebacterium (units (unknown) date) striatum is unknown) unclaimed for sensitivity on the (unknown) (no (unknown) (unknown) GenericComposite[ (units (unknown) date) CORSTR^Corynebacte unknown) rium striatum] (unknown) (no (unknown) (unknown) GenericComposite[ (units (unknown) date) PSEAER^Pseudomonas unknown) aeruginosa] (unknown) (no (unknown) (unknown) GenericComposite[ (units (unknown) date) STRFAE^Enterococcu unknown) s faecalis] (unknown) (no (unknown) (unknown) Isolate sent to (units (unknown) date) [facility] for unknown) ID/Confirmation (unknown) (no (unknown) (unknown) LIGHT (units (unkno wn) date) unknown) (unknown) (no (unknown) (unknown) No cells or (units (un known) date) organisms seen unknown) (unknown) (no (unknown) (unknown) No cells or (units (un known) date) organisms seen unknown) (unknown) (no (unknown) (unknown) No growth. (units (unk nown) date) unknown) (unknown) (no (unknown) (unknown) Pseudomonas (units (un known) date) aeruginosa isolate unknown) sent to [facility] to confirm (unknown) (no (unknown) (unknown) SCANT (units (unkno wn) date) unknown) (unknown) (no (unknown) (unknown) SYN-S (units (unkno wn) date) unknown) (unknown) (no (unknown) (unknown) Test not (units (unkno wn) date) performed unknown) (unknown) (no (unknown) (unknown) Vitek 2 panel. If (units (unknown) date) a sensitivity is unknown) requested, this organism (unknown) (no (unknown) (unknown) imipenem and (units (u nknown) date) meropenem unknown) antibiotic resistance. (unknown) (no (unknown) (unknown) will be sent out (units (unknown) date) to the reference unknown) lab. Result panel 19 (unknown) (no date) (unknown) (unknown) (no value) (units (un known) unknown) (unknown) (no date) (unknown) (unknown) >=16 (units (unkn own) unknown) (unknown) (no date) (unknown) (unknown) <=0.12 (units (unkn own) unknown) (unknown) (no date) (unknown) (unknown) <=16 (units (unkn own) unknown) (unknown) (no date) (unknown) (unknown) <=2 (units (unkn own) unknown) (unknown) (no date) (unknown) (unknown) 1 (units (unkn own) unknown) (unknown) (no date) (unknown) (unknown) 2 (units (unkn own) unknown) (unknown) (no date) (unknown) (unknown) GenericCompos (units (unknown) ite[STRFAE^Ent unknown) erococcus faecalis] (unknown) (no date) (unknown) (unknown) No cells or (units (u nknown) organisms seen unknown) (unknown) (no date) (unknown) (unknown) SCANT (units (unkn own) unknown) (unknown) (no date) (unknown) (unknown) SYN-S (units (unkn own) unknown) (unknown) (no date) (unknown) (unknown) Test not (units (unkn own) performed unknown) Result panel 20 (unknown) (no (unknown) (unknown) (no value) (units (unk nown) date) unknown) (unknown) (no (unknown) (unknown) (no value) (units (unk nown) date) unknown) (unknown) (no (unknown) (unknown) (no value) (units (unk nown) date) unknown) (unknown) (no (unknown) (unknown) >=16 (units (unkno wn) date) unknown) (unknown) (no (unknown) (unknown) <=0.12 (units (unkno wn) date) unknown) (unknown) (no (unknown) (unknown) <=1 (units (unkno wn) date) unknown) (unknown) (no (unknown) (unknown) <=16 (units (unkno wn) date) unknown) (unknown) (no (unknown) (unknown) <=2 (units (unkno wn) date) unknown) (unknown) (no (unknown) (unknown) 0.5 (units (unkno wn) date) unknown) (unknown) (no (unknown) (unknown) 1 (units (unkno wn) date) unknown) (unknown) (no (unknown) (unknown) 2 (units (unkno wn) date) unknown) (unknown) (no (unknown) (unknown) 32 (units (unkno wn) date) unknown) (unknown) (no (unknown) (unknown) Corynebacterium (units (unknown) date) striatum is unknown) unclaimed for sensitivity on the (unknown) (no (unknown) (unknown) GenericComposite[ (units (unknown) date) CORSTR^Corynebacte unknown) rium striatum] (unknown) (no (unknown) (unknown) GenericComposite[ (units (unknown) date) PSEAER^Pseudomonas unknown) aeruginosa] (unknown) (no (unknown) (unknown) GenericComposite[ (units (unknown) date) STRFAE^Enterococcu unknown) s faecalis] (unknown) (no (unknown) (unknown) Isolate sent to [facility] (unknown) date) [facility] for [facility]) ID/Confirmation (unknown) (no (unknown) (unknown) LIGHT (units (unkno wn) date) unknown) (unknown) (no (unknown) (unknown) No cells or (units (un known) date) organisms seen unknown) (unknown) (no (unknown) (unknown) No growth. (units (unk nown) date) unknown) (unknown) (no (unknown) (unknown) Pseudomonas (units (un known) date) aeruginosa isolate unknown) sent to [facility] to confirm (unknown) (no (unknown) (unknown) SCANT (units (unkno wn) date) unknown) (unknown) (no (unknown) (unknown) SYN-S (units (unkno wn) date) unknown) (unknown) (no (unknown) (unknown) Vitek 2 panel. If (units (unknown) date) a sensitivity is unknown) requested, this organism (unknown) (no (unknown) (unknown) imipenem and (units (u nknown) date) meropenem unknown) antibiotic resistance. (unknown) (no (unknown) (unknown) will be sent out (units (unknown) date) to the reference unknown) lab. Result panel 21 (unknown) (no date) (unknown) (unknown) (no value) (units (un known) unknown) (unknown) (no date) (unknown) (unknown) >=16 (units (unkn own) unknown) (unknown) (no date) (unknown) (unknown) <=0.12 (units (unkn own) unknown) (unknown) (no date) (unknown) (unknown) <=16 (units (unkn own) unknown) (unknown) (no date) (unknown) (unknown) <=2 (units (unkn own) unknown) (unknown) (no date) (unknown) (unknown) 1 (units (unkn own) unknown) (unknown) (no date) (unknown) (unknown) 2 (units (unkn own) unknown) (unknown) (no date) (unknown) (unknown) GenericCompos (units (unknown) ite[STRFAE^Ent unknown) erococcus faecalis] (unknown) (no date) (unknown) (unknown) No cells or (units (u nknown) organisms seen unknown) (unknown) (no date) (unknown) (unknown) SCANT (units (unkn own) unknown) (unknown) (no date) (unknown) (unknown) SYN-S (units (unkn own) unknown) (unknown) (no date) (unknown) (unknown) Test not (units (unkn own) performed unknown) Result panel 22 (unknown) (no date) (unknown) (unknown) (no value) (units (un known) unknown) (unknown) (no date) (unknown) (unknown) >=16 (units (unkn own) unknown) (unknown) (no date) (unknown) (unknown) <=0.12 (units (unkn own) unknown) (unknown) (no date) (unknown) (unknown) <=16 (units (unkn own) unknown) (unknown) (no date) (unknown) (unknown) <=2 (units (unkn own) unknown) (unknown) (no date) (unknown) (unknown) 1 (units (unkn own) unknown) (unknown) (no date) (unknown) (unknown) 2 (units (unkn own) unknown) (unknown) (no date) (unknown) (unknown) GenericCompos (units (unknown) ite[STRFAE^Ent unknown) erococcus faecalis] (unknown) (no date) (unknown) (unknown) No cells or (units (u nknown) organisms seen unknown) (unknown) (no date) (unknown) (unknown) SCANT (units (unkn own) unknown) (unknown) (no date) (unknown) (unknown) SYN-S (units (unkn own) unknown) (unknown) (no date) (unknown) (unknown) Test not (units (unkn own) performed unknown) Result panel 23 (unknown) (no (unknown) (unknown) (no value) (units (unk nown) date) unknown) (unknown) (no (unknown) (unknown) (no value) (units (unk nown) date) unknown) (unknown) (no (unknown) (unknown) (no value) (units (unk nown) date) unknown) (unknown) (no (unknown) (unknown) >=16 (units (unkno wn) date) unknown) (unknown) (no (unknown) (unknown) <=0.12 (units (unkno wn) date) unknown) (unknown) (no (unknown) (unknown) <=1 (units (unkno wn) date) unknown) (unknown) (no (unknown) (unknown) <=16 (units (unkno wn) date) unknown) (unknown) (no (unknown) (unknown) <=2 (units (unkno wn) date) unknown) (unknown) (no (unknown) (unknown) 0.5 (units (unkno wn) date) unknown) (unknown) (no (unknown) (unknown) 1 (units (unkno wn) date) unknown) (unknown) (no (unknown) (unknown) 2 (units (unkno wn) date) unknown) (unknown) (no (unknown) (unknown) 32 (units (unkno wn) date) unknown) (unknown) (no (unknown) (unknown) Corynebacterium (units (unknown) date) striatum is unknown) unclaimed for sensitivity on the (unknown) (no (unknown) (unknown) GenericComposite[ (units (unknown) date) CORSTR^Corynebacte unknown) rium striatum] (unknown) (no (unknown) (unknown) GenericComposite[ (units (unknown) date) PSEAER^Pseudomonas unknown) aeruginosa] (unknown) (no (unknown) (unknown) GenericComposite[ (units (unknown) date) STRFAE^Enterococcu unknown) s faecalis] (unknown) (no (unknown) (unknown) Isolate sent to [facility] (unknown) date) [facility] for [facility]) ID/Confirmation (unknown) (no (unknown) (unknown) LIGHT (units (unkno wn) date) unknown) (unknown) (no (unknown) (unknown) No cells or (units (un known) date) organisms seen unknown) (unknown) (no (unknown) (unknown) No growth. (units (unk nown) date) unknown) (unknown) (no (unknown) (unknown) Pseudomonas (units (un known) date) aeruginosa isolate unknown) sent to state to confirm (unknown) (no (unknown) (unknown) SCANT (units (unkno wn) date) unknown) (unknown) (no (unknown) (unknown) SYN-S (units (unkno wn) date) unknown) (unknown) (no (unknown) (unknown) Vitek 2 panel. If (units (unknown) date) a sensitivity is unknown) requested, this organism (unknown) (no (unknown) (unknown) imipenem and (units (u nknown) date) meropenem unknown) antibiotic resistance. (unknown) (no (unknown) (unknown) will be sent out (units (unknown) date) to the reference unknown) lab. Result panel 24 (unknown) (no (unknown) (unknown) (no value) (units (unk nown) date) unknown) (unknown) (no (unknown) (unknown) (no value) (units (unk nown) date) unknown) (unknown) (no (unknown) (unknown) (no value) (units (unk nown) date) unknown) (unknown) (no (unknown) (unknown) >=16 (units (unkno wn) date) unknown) (unknown) (no (unknown) (unknown) <=0.12 (units (unkno wn) date) unknown) (unknown) (no (unknown) (unknown) <=1 (units (unkno wn) date) unknown) (unknown) (no (unknown) (unknown) <=16 (units (unkno wn) date) unknown) (unknown) (no (unknown) (unknown) <=2 (units (unkno wn) date) unknown) (unknown) (no (unknown) (unknown) 0.5 (units (unkno wn) date) unknown) (unknown) (no (unknown) (unknown) 1 (units (unkno wn) date) unknown) (unknown) (no (unknown) (unknown) 2 (units (unkno wn) date) unknown) (unknown) (no (unknown) (unknown) 32 (units (unkno wn) date) unknown) (unknown) (no (unknown) (unknown) Corynebacterium (units (unknown) date) striatum is unknown) unclaimed for sensitivity on the (unknown) (no (unknown) (unknown) GenericComposite[ (units (unknown) date) CORSTR^Corynebacte unknown) rium striatum] (unknown) (no (unknown) (unknown) GenericComposite[ (units (unknown) date) PSEAER^Pseudomonas unknown) aeruginosa] (unknown) (no (unknown) (unknown) GenericComposite[ (units (unknown) date) STRFAE^Enterococcu unknown) s faecalis] (unknown) (no (unknown) (unknown) Isolate sent to (units (unknown) date) [facility] for unknown) ID/Confirmation (unknown) (no (unknown) (unknown) LIGHT (units (unkno wn) date) unknown) (unknown) (no (unknown) (unknown) No cells or (units (un known) date) organisms seen unknown) (unknown) (no (unknown) (unknown) No growth. (units (unk nown) date) unknown) (unknown) (no (unknown) (unknown) Pseudomonas (units (un known) date) aeruginosa isolate unknown) sent to state to confirm (unknown) (no (unknown) (unknown) SCANT (units (unkno wn) date) unknown) (unknown) (no (unknown) (unknown) SYN-S (units (o wn) date) unknown) (unknown) (no (unknown) (unknown) Vitek 2 panel. If (units (unknown) date) a sensitivity is unknown) requested, this organism (unknown) (no (unknown) (unknown) imipenem and (units (u nknown) date) meropenem unknown) antibiotic resistance. (unknown) (no (unknown) (unknown) will be sent out (units (unknown) date) to the reference unknown) lab. Result panel 25 (unknown) (no date) (unknown) (unknown) (no value) (units (un known) unknown) (unknown) (no date) (unknown) (unknown) >=16 (units (unkn own) unknown) (unknown) (no date) (unknown) (unknown) <=0.12 (units (unkn own) unknown) (unknown) (no date) (unknown) (unknown) <=16 (units (unkn own) unknown) (unknown) (no date) (unknown) (unknown) <=2 (units (unkn own) unknown) (unknown) (no date) (unknown) (unknown) 1 (units (unkn own) unknown) (unknown) (no date) (unknown) (unknown) 2 (units (unkn own) unknown) (unknown) (no date) (unknown) (unknown) GenericCompos (units (unknown) ite[STRFAE^Ent unknown) erococcus faecalis] (unknown) (no date) (unknown) (unknown) No cells or (units (u nknown) organisms seen unknown) (unknown) (no date) (unknown) (unknown) SCANT (units (unkn own) unknown) (unknown) (no date) (unknown) (unknown) SYN-S (units (unkn own) unknown) (unknown) (no date) (unknown) (unknown) Test not (units (unkn own) performed unknown) Result panel 26 (unknown) (no (unknown) (unknown) (no value) (units (unk nown) date) unknown) (unknown) (no (unknown) (unknown) (no value) (units (unk nown) date) unknown) (unknown) (no (unknown) (unknown) (no value) (units (unk nown) date) unknown) (unknown) (no (unknown) (unknown) >=16 (units (unkno wn) date) unknown) (unknown) (no (unknown) (unknown) <=0.12 (units (unkno wn) date) unknown) (unknown) (no (unknown) (unknown) <=1 (units (unkno wn) date) unknown) (unknown) (no (unknown) (unknown) <=16 (units (unkno wn) date) unknown) (unknown) (no (unknown) (unknown) <=2 (units (unkno wn) date) unknown) (unknown) (no (unknown) (unknown) 0.5 (units (unkno wn) date) unknown) (unknown) (no (unknown) (unknown) 1 (units (unkno wn) date) unknown) (unknown) (no (unknown) (unknown) 2 (units (unkno wn) date) unknown) (unknown) (no (unknown) (unknown) 32 (units (unkno wn) date) unknown) (unknown) (no (unknown) (unknown) Corynebacterium (units (unknown) date) striatum is unknown) unclaimed for sensitivity on the (unknown) (no (unknown) (unknown) GenericComposite[ (units (unknown) date) CORSTR^Corynebacte unknown) rium striatum] (unknown) (no (unknown) (unknown) GenericComposite[ (units (unknown) date) PSEAER^Pseudomonas unknown) aeruginosa] (unknown) (no (unknown) (unknown) GenericComposite[ (units (unknown) date) STRFAE^Enterococcu unknown) s faecalis] (unknown) (no (unknown) (unknown) Isolate sent to ([facility] (unknown) date) [facility] for unknown) ID/Confirmation (unknown) (no (unknown) (unknown) LIGHT (units (unkno wn) date) unknown) (unknown) (no (unknown) (unknown) No cells or (units (un known) date) organisms seen unknown) (unknown) (no (unknown) (unknown) No growth. (units (unk nown) date) unknown) (unknown) (no (unknown) (unknown) Pseudomonas (units (un known) date) aeruginosa isolate unknown) sent to state to confirm (unknown) (no (unknown) (unknown) SCANT (units (unkno wn) date) unknown) (unknown) (no (unknown) (unknown) SYN-S (units (unkno wn) date) unknown) (unknown) (no (unknown) (unknown) Vitek 2 panel. If (units (unknown) date) a sensitivity is unknown) requested, this organism (unknown) (no (unknown) (unknown) imipenem and (units (u nknown) date) meropenem unknown) antibiotic resistance. (unknown) (no (unknown) (unknown) will be sent out (units (unknown) date) to the reference unknown) lab. Result panel 27 (unknown) (no (unknown) (unknown) (no value) (units (unk nown) date) unknown) (unknown) (no (unknown) (unknown) (no value) (units (unk nown) date) unknown) (unknown) (no (unknown) (unknown) (no value) (units (unk nown) date) unknown) (unknown) (no (unknown) (unknown) >=16 (units (unkno wn) date) unknown) (unknown) (no (unknown) (unknown) <=0.12 (units (unkno wn) date) unknown) (unknown) (no (unknown) (unknown) <=1 (units (unkno wn) date) unknown) (unknown) (no (unknown) (unknown) <=16 (units (unkno wn) date) unknown) (unknown) (no (unknown) (unknown) <=2 (units (unkno wn) date) unknown) (unknown) (no (unknown) (unknown) 0.5 (units (unkno wn) date) unknown) (unknown) (no (unknown) (unknown) 1 (units (unkno wn) date) unknown) (unknown) (no (unknown) (unknown) 2 (units (unkno wn) date) unknown) (unknown) (no (unknown) (unknown) 32 (units (unkno wn) date) unknown) (unknown) (no (unknown) (unknown) Corynebacterium (units (unknown) date) striatum is unknown) unclaimed for sensitivity on the (unknown) (no (unknown) (unknown) GenericComposite[ (units (unknown) date) CORSTR^Corynebacte unknown) rium striatum] (unknown) (no (unknown) (unknown) GenericComposite[ (units (unknown) date) PSEAER^Pseudomonas unknown) aeruginosa] (unknown) (no (unknown) (unknown) GenericComposite[ (units (unknown) date) STRFAE^Enterococcu unknown) s faecalis] (unknown) (no (unknown) (unknown) Isolate sent to ([facility] (unknown) date) [facility] for unknown) ID/Confirmation (unknown) (no (unknown) (unknown) LIGHT (units (unkno wn) date) unknown) (unknown) (no (unknown) (unknown) No cells or (units (un known) date) organisms seen unknown) (unknown) (no (unknown) (unknown) No growth. (units (unk nown) date) unknown) (unknown) (no (unknown) (unknown) Pseudomonas (units (un known) date) aeruginosa isolate unknown) sent to [facility] to confirm (unknown) (no (unknown) (unknown) SCANT (units (unkno wn) date) unknown) (unknown) (no (unknown) (unknown) SYN-S (units (unkno wn) date) unknown) (unknown) (no (unknown) (unknown) Vitek 2 panel. If (units (unknown) date) a sensitivity is unknown) requested, this organism (unknown) (no (unknown) (unknown) imipenem and (units (u nknown) date) meropenem unknown) antibiotic resistance. (unknown) (no (unknown) (unknown) will be sent out (units (unknown) date) to the reference unknown) lab. Result panel 28 (unknown) (no date) (unknown) (unknown) (no value) (units (un known) unknown) (unknown) (no date) (unknown) (unknown) >=16 (units (unkn own) unknown) (unknown) (no date) (unknown) (unknown) <=0.12 (units (unkn own) unknown) (unknown) (no date) (unknown) (unknown) <=16 (units (unkn own) unknown) (unknown) (no date) (unknown) (unknown) <=2 (units (unkn own) unknown) (unknown) (no date) (unknown) (unknown) 1 (units (unkn own) unknown) (unknown) (no date) (unknown) (unknown) 2 (units (unkn own) unknown) (unknown) (no date) (unknown) (unknown) GenericCompos (units (unknown) ite[STRFAE^Ent unknown) erococcus faecalis] (unknown) (no date) (unknown) (unknown) No cells or (units (u nknown) organisms seen unknown) (unknown) (no date) (unknown) (unknown) SCANT (units (unkn own) unknown) (unknown) (no date) (unknown) (unknown) SYN-S (units (unkn own) unknown) (unknown) (no date) (unknown) (unknown) Test not (units (unkn own) performed unknown) Result panel 29 (unknown) (no (unknown) (unknown) (no value) (units (unk nown) date) unknown) (unknown) (no (unknown) (unknown) (no value) (units (unk nown) date) unknown) (unknown) (no (unknown) (unknown) (no value) (units (unk nown) date) unknown) (unknown) (no (unknown) (unknown) >=16 (units (unkno wn) date) unknown) (unknown) (no (unknown) (unknown) <=0.12 (units (unkno wn) date) unknown) (unknown) (no (unknown) (unknown) <=1 (units (unkno wn) date) unknown) (unknown) (no (unknown) (unknown) <=16 (units (unkno wn) date) unknown) (unknown) (no (unknown) (unknown) <=2 (units (unkno wn) date) unknown) (unknown) (no (unknown) (unknown) 0.5 (units (unkno wn) date) unknown) (unknown) (no (unknown) (unknown) 1 (units (unkno wn) date) unknown) (unknown) (no (unknown) (unknown) 2 (units (unkno wn) date) unknown) (unknown) (no (unknown) (unknown) 32 (units (unkno wn) date) unknown) (unknown) (no (unknown) (unknown) Corynebacterium (units (unknown) date) striatum is unknown) unclaimed for sensitivity on the (unknown) (no (unknown) (unknown) GenericComposite[ (units (unknown) date) CORSTR^Corynebacte unknown) rium striatum] (unknown) (no (unknown) (unknown) GenericComposite[ (units (unknown) date) PSEAER^Pseudomonas unknown) aeruginosa] (unknown) (no (unknown) (unknown) GenericComposite[ (units (unknown) date) STRFAE^Enterococcu unknown) s faecalis] (unknown) (no (unknown) (unknown) Isolate sent to ([facility] (unknown) date) [facility] for [facility]) ID/Confirmation (unknown) (no (unknown) (unknown) LIGHT (units (unkno wn) date) unknown) (unknown) (no (unknown) (unknown) No cells or (units (un known) date) organisms seen unknown) (unknown) (no (unknown) (unknown) No growth. (units (unk nown) date) unknown) (unknown) (no (unknown) (unknown) Pseudomonas (units (un known) date) aeruginosa isolate unknown) sent to [facility] to confirm (unknown) (no (unknown) (unknown) SCANT (units (unkno wn) date) unknown) (unknown) (no (unknown) (unknown) SYN-S (units (unkno wn) date) unknown) (unknown) (no (unknown) (unknown) Vitek 2 panel. If (units (unknown) date) a sensitivity is unknown) requested, this organism (unknown) (no (unknown) (unknown) imipenem and (units (u nknown) date) meropenem unknown) antibiotic resistance. (unknown) (no (unknown) (unknown) will be sent out (units (unknown) date) to the reference unknown) lab. Result panel 30 (unknown) (no (unknown) (unknown) (no value) (units (unk nown) date) unknown) (unknown) (no (unknown) (unknown) (no value) (units (unk nown) date) unknown) (unknown) (no (unknown) (unknown) (no value) (units (unk nown) date) unknown) (unknown) (no (unknown) (unknown) >=16 (units (unkno wn) date) unknown) (unknown) (no (unknown) (unknown) <=0.12 (units (unkno wn) date) unknown) (unknown) (no (unknown) (unknown) <=1 (units (unkno wn) date) unknown) (unknown) (no (unknown) (unknown) <=16 (units (unkno wn) date) unknown) (unknown) (no (unknown) (unknown) <=2 (units (unkno wn) date) unknown) (unknown) (no (unknown) (unknown) 0.5 (units (unkno wn) date) unknown) (unknown) (no (unknown) (unknown) 1 (units (unkno wn) date) unknown) (unknown) (no (unknown) (unknown) 2 (units (unkno wn) date) unknown) (unknown) (no (unknown) (unknown) 32 (units (unkno wn) date) unknown) (unknown) (no (unknown) (unknown) Corynebacterium (units (unknown) date) striatum is unknown) unclaimed for sensitivity on the (unknown) (no (unknown) (unknown) GenericComposite[ (units (unknown) date) CORSTR^Corynebacte unknown) rium striatum] (unknown) (no (unknown) (unknown) GenericComposite[ (units (unknown) date) PSEAER^Pseudomonas unknown) aeruginosa] (unknown) (no (unknown) (unknown) GenericComposite[ (units (unknown) date) STRFAE^Enterococcu unknown) s faecalis] (unknown) (no (unknown) (unknown) Isolate sent to (units (unknown) date) [facility] for [facility]) ID/Confirmation (unknown) (no (unknown) (unknown) LIGHT (units (unkno wn) date) unknown) (unknown) (no (unknown) (unknown) No cells or (units (un known) date) organisms seen unknown) (unknown) (no (unknown) (unknown) No growth. (units (unk nown) date) unknown) (unknown) (no (unknown) (unknown) Pseudomonas (units (un known) date) aeruginosa isolate unknown) sent to [facility] to confirm (unknown) (no (unknown) (unknown) SCANT (units (unkno wn) date) unknown) (unknown) (no (unknown) (unknown) SYN-S (units (unkno wn) date) unknown) (unknown) (no (unknown) (unknown) Vitek 2 panel. If (units (unknown) date) a sensitivity is unknown) requested, this organism (unknown) (no (unknown) (unknown) imipenem and (units (u nknown) date) meropenem unknown) antibiotic resistance. (unknown) (no (unknown) (unknown) will be sent out (units (unknown) date) to the reference unknown) lab. Result panel 31 (unknown) (no (unknown) (unknown) (no value) (units (unk nown) date) unknown) (unknown) (no (unknown) (unknown) (no value) (units (unk nown) date) unknown) (unknown) (no (unknown) (unknown) (no value) (units (unk nown) date) unknown) (unknown) (no (unknown) (unknown) >=16 (units (unkno wn) date) unknown) (unknown) (no (unknown) (unknown) <=0.12 (units (unkno wn) date) unknown) (unknown) (no (unknown) (unknown) <=1 (units (unkno wn) date) unknown) (unknown) (no (unknown) (unknown) <=16 (units (unkno wn) date) unknown) (unknown) (no (unknown) (unknown) <=2 (units (unkno wn) date) unknown) (unknown) (no (unknown) (unknown) 0.5 (units (unkno wn) date) unknown) (unknown) (no (unknown) (unknown) 1 (units (unkno wn) date) unknown) (unknown) (no (unknown) (unknown) 2 (units (unkno wn) date) unknown) (unknown) (no (unknown) (unknown) 32 (units (unkno wn) date) unknown) (unknown) (no (unknown) (unknown) Corynebacterium (units (unknown) date) striatum is unknown) unclaimed for sensitivity on the (unknown) (no (unknown) (unknown) GenericComposite[ (units (unknown) date) CORSTR^Corynebacte unknown) rium striatum] (unknown) (no (unknown) (unknown) GenericComposite[ (units (unknown) date) PSEAER^Pseudomonas unknown) aeruginosa] (unknown) (no (unknown) (unknown) GenericComposite[ (units (unknown) date) STRFAE^Enterococcu unknown) s faecalis] (unknown) (no (unknown) (unknown) Isolate sent to [facility] (unknown) date) [facility] for [facility]) ID/Confirmation (unknown) (no (unknown) (unknown) LIGHT (units (unkno wn) date) unknown) (unknown) (no (unknown) (unknown) No cells or (units (un known) date) organisms seen unknown) (unknown) (no (unknown) (unknown) No growth. (units (unk nown) date) unknown) (unknown) (no (unknown) (unknown) Pseudomonas (units (un known) date) aeruginosa isolate unknown) sent to [facility] to confirm (unknown) (no (unknown) (unknown) SCANT (units (unkno wn) date) unknown) (unknown) (no (unknown) (unknown) SYN-S (units (unkno wn) date) unknown) (unknown) (no (unknown) (unknown) Vitek 2 panel. If (units (unknown) date) a sensitivity is unknown) requested, this organism (unknown) (no (unknown) (unknown) imipenem and (units (u nknown) date) meropenem unknown) antibiotic resistance. (unknown) (no (unknown) (unknown) will be sent out (units (unknown) date) to the reference unknown) lab. Result panel 32 (unknown) (no date) (unknown) (unknown) SEE COMMENT (units (u nknown) unknown) Result panel 33 (unknown) (no date) (unknown) (unknown) SEE COMMENT (units (u nknown) unknown) Result panel 34 (unknown) (no date) (unknown) (unknown) (no value) (units (un known) unknown) (unknown) (no date) (unknown) (unknown) 1+ (units (unkn own) unknown) (unknown) (no date) (unknown) (unknown) Few poly (units (unkn own) WBCs unknown) Result panel 35 (unknown) (no date) (unknown) (unknown) (no value) (units (un known) unknown) (unknown) (no date) (unknown) (unknown) 1+ (units (unkn own) unknown) (unknown) (no date) (unknown) (unknown) Few poly WBCs (units (unknown) unknown) (unknown) (no date) (unknown) (unknown) Very Early (units (un known) Growth: Culture unknown) too young for work-up reincubated Result panel 36 (unknown) (no (unknown) (unknown) (no value) (units (unk nown) date) unknown) (unknown) (no (unknown) (unknown) (no value) (units (unk nown) date) unknown) (unknown) (no (unknown) (unknown) (no value) (units (unk nown) date) unknown) (unknown) (no (unknown) (unknown) >=16 (units (unkno wn) date) unknown) (unknown) (no (unknown) (unknown) <=0.12 (units (unkno wn) date) unknown) (unknown) (no (unknown) (unknown) <=1 (units (unkno wn) date) unknown) (unknown) (no (unknown) (unknown) <=16 (units (unkno wn) date) unknown) (unknown) (no (unknown) (unknown) <=2 (units (unkno wn) date) unknown) (unknown) (no (unknown) (unknown) 0.5 (units (unkno wn) date) unknown) (unknown) (no (unknown) (unknown) 1 (units (unkno wn) date) unknown) (unknown) (no (unknown) (unknown) 2 (units (unkno wn) date) unknown) (unknown) (no (unknown) (unknown) 32 (units (unkno wn) date) unknown) (unknown) (no (unknown) (unknown) Corynebacterium (units (unknown) date) striatum is unknown) unclaimed for sensitivity on the (unknown) (no (unknown) (unknown) GenericComposite[ (units (unknown) date) CORSTR^Corynebacte unknown) rium striatum] (unknown) (no (unknown) (unknown) GenericComposite[ (units (unknown) date) PSEAER^Pseudomonas unknown) aeruginosa] (unknown) (no (unknown) (unknown) GenericComposite[ (units (unknown) date) STRFAE^Enterococcu unknown) s faecalis] (unknown) (no (unknown) (unknown) Imipenem: 8 ug/mL (units (unknown) date) (Resistant) unknown) (unknown) (no (unknown) (unknown) Isolate sent to ([facility] (unknown) date) [facility] for [facility]) ID/Confirmation (unknown) (no (unknown) (unknown) LIGHT (units (unkno wn) date) unknown) (unknown) (no (unknown) (unknown) Meropenem: >8 (units ( unknown) date) ug/mL (Resistant) unknown) (unknown) (no (unknown) (unknown) No cells or (units (un known) date) organisms seen unknown) (unknown) (no (unknown) (unknown) No growth. (units (unk nown) date) unknown) (unknown) (no (unknown) (unknown) Pseudomonas (units (un known) date) aeruginosa isolate unknown) sent to [facility] to confirm (unknown) (no (unknown) (unknown) SCANT (units (unkno wn) date) unknown) (unknown) (no (unknown) (unknown) SYN-S (units (unkno wn) date) unknown) (unknown) (no (unknown) (unknown) Vitek 2 panel. If (units (unknown) date) a sensitivity is unknown) requested, this organism (unknown) (no (unknown) (unknown) [facility] (units (unknown) date) Department of [facility] confirmation (unknown) (no (unknown) (unknown) imipenem and (units (u nknown) date) meropenem unknown) antibiotic resistance. (unknown) (no (unknown) (unknown) results: (units (unkno wn) date) unknown) (unknown) (no (unknown) (unknown) will be sent out (units (unknown) date) to the reference unknown) lab. Result panel 37 (unknown) (no date) (unknown) (unknown) (no value) (units (un known) unknown) (unknown) (no date) (unknown) (unknown) 1+ (units (unkn own) unknown) (unknown) (no date) (unknown) (unknown) Few poly WBCs (units (unknown) unknown) (unknown) (no date) (unknown) (unknown) No growth. (units (un known) unknown) (unknown) (no date) (unknown) (unknown) Very Early (units (un known) Growth: Culture unknown) too young for work-up reincubated Result panel 38 (unknown) (no date) (unknown) (unknown) (no value) (units (un known) unknown) (unknown) (no date) (unknown) (unknown) 1+ (units (unkn own) unknown) (unknown) (no date) (unknown) (unknown) Few poly WBCs (units (unknown) unknown) (unknown) (no date) (unknown) (unknown) No growth. (units (un known) unknown) (unknown) (no date) (unknown) (unknown) Very Early (units (un known) Growth: Culture unknown) too young for work-up reincubated Result panel 39 (unknown) (no (unknown) (unknown) (no value) (units (unk nown) date) unknown) (unknown) (no (unknown) (unknown) 1+ (units (unkno wn) date) unknown) (unknown) (no (unknown) (unknown) Few poly WBCs (units ( unknown) date) unknown) (unknown) (no (unknown) (unknown) GenericComposite (units (unknown) date) [GNB^Gram unknown) negative bacilli] (unknown) (no (unknown) (unknown) GenericComposite (units (unknown) date) [GPC^Gram unknown) positive cocci] (unknown) (no (unknown) (unknown) Identification (units (unknown) date) and Sensitivity unknown) to Follow (unknown) (no (unknown) (unknown) LIGHT (units (unkno wn) date) unknown) (unknown) (no (unknown) (unknown) MODERATE (units (unkno wn) date) unknown) (unknown) (no (unknown) (unknown) No growth. (units (unk nown) date) unknown) (unknown) (no (unknown) (unknown) Very Early (units (unk nown) date) Growth: Culture unknown) too young for work-up reincubated Result panel 40 (unknown) (no (unknown) (unknown) (no value) (units (unk nown) date) unknown) (unknown) (no (unknown) (unknown) 1+ (units (unkno wn) date) unknown) (unknown) (no (unknown) (unknown) Few poly WBCs (units ( unknown) date) unknown) (unknown) (no (unknown) (unknown) GenericComposite (units (unknown) date) [GNB^Gram unknown) negative bacilli] (unknown) (no (unknown) (unknown) GenericComposite (units (unknown) date) [GPC^Gram unknown) positive cocci] (unknown) (no (unknown) (unknown) Identification (units (unknown) date) and Sensitivity unknown) to Follow (unknown) (no (unknown) (unknown) LIGHT (units (unkno wn) date) unknown) (unknown) (no (unknown) (unknown) MODERATE (units (unkno wn) date) unknown) (unknown) (no (unknown) (unknown) No growth. (units (unk nown) date) unknown) Result panel 41 (unknown) (no (unknown) (unknown) (no value) (units (unk nown) date) unknown) (unknown) (no (unknown) (unknown) 1+ (units (unkno wn) date) unknown) (unknown) (no (unknown) (unknown) Few poly WBCs (units ( unknown) date) unknown) (unknown) (no (unknown) (unknown) GenericComposite (units (unknown) date) [GNB^Gram unknown) negative bacilli] (unknown) (no (unknown) (unknown) GenericComposite (units (unknown) date) [GPC^Gram unknown) positive cocci] (unknown) (no (unknown) (unknown) Identification (units (unknown) date) and Sensitivity unknown) to Follow (unknown) (no (unknown) (unknown) LIGHT (units (unkno wn) date) unknown) (unknown) (no (unknown) (unknown) MODERATE (units (unkno wn) date) unknown) (unknown) (no (unknown) (unknown) No growth. (units (unk nown) date) unknown) Result panel 42 (unknown) (no (unknown) (unknown) (no value) (units (unk nown) date) unknown) (unknown) (no (unknown) (unknown) <=2 (units (unkno wn) date) unknown) (unknown) (no (unknown) (unknown) 1 (units (unkno wn) date) unknown) (unknown) (no (unknown) (unknown) 1+ (units (unkno wn) date) unknown) (unknown) (no (unknown) (unknown) 2 (units (unkno wn) date) unknown) (unknown) (no (unknown) (unknown) Few poly WBCs (units ( unknown) date) unknown) (unknown) (no (unknown) (unknown) GenericComposite (units (unknown) date) [GNB^Gram unknown) negative bacilli] (unknown) (no (unknown) (unknown) GenericComposite (units (unknown) date) [GPC^Gram unknown) positive cocci] (unknown) (no (unknown) (unknown) GenericComposite (units (unknown) date) [STRFAE^Enterococ unknown) cus faecalis] (unknown) (no (unknown) (unknown) GenericComposite (units (unknown) date) [STRMO^Streptococ unknown) cus mitis/oralis] (unknown) (no (unknown) (unknown) Identification (units (unknown) date) and Sensitivity unknown) to Follow (unknown) (no (unknown) (unknown) LIGHT (units (unkno wn) date) unknown) (unknown) (no (unknown) (unknown) MODERATE (units (unkno wn) date) unknown) (unknown) (no (unknown) (unknown) No growth. (units (unk nown) date) unknown) (unknown) (no (unknown) (unknown) SYN-S (units (unkno wn) date) unknown) Result panel 43 (unknown) (no (unknown) (unknown) (no value) (units (unk nown) date) unknown) (unknown) (no (unknown) (unknown) <=2 (units (unkno wn) date) unknown) (unknown) (no (unknown) (unknown) 1 (units (unkno wn) date) unknown) (unknown) (no (unknown) (unknown) 1+ (units (unkno wn) date) unknown) (unknown) (no (unknown) (unknown) 2 (units (unkno wn) date) unknown) (unknown) (no (unknown) (unknown) Few poly WBCs (units ( unknown) date) unknown) (unknown) (no (unknown) (unknown) GenericComposite (units (unknown) date) [GNB^Gram unknown) negative bacilli] (unknown) (no (unknown) (unknown) GenericComposite (units (unknown) date) [STRFAE^Enterococ unknown) cus faecalis] (unknown) (no (unknown) (unknown) GenericComposite (units (unknown) date) [STRMO^Streptococ unknown) cus mitis/oralis] (unknown) (no (unknown) (unknown) Identification (units (unknown) date) and Sensitivity unknown) to Follow (unknown) (no (unknown) (unknown) LIGHT (units (unkno wn) date) unknown) (unknown) (no (unknown) (unknown) MODERATE (units (unkno wn) date) unknown) (unknown) (no (unknown) (unknown) No growth. (units (unk nown) date) unknown) (unknown) (no (unknown) (unknown) SYN-S (units (unkno wn) date) unknown) (unknown) (no (unknown) (unknown) Sensitivity to (units (unknown) date) Follow unknown) Result panel 44 (unknown) (no (unknown) (unknown) (no value) (units (unk nown) date) unknown) (unknown) (no (unknown) (unknown) (no value) (units (unk nown) date) unknown) (unknown) (no (unknown) (unknown) >=128 (units (unkno wn) date) unknown) (unknown) (no (unknown) (unknown) >=16 (units (unkno wn) date) unknown) (unknown) (no (unknown) (unknown) >=32 (units (unkno wn) date) unknown) (unknown) (no (unknown) (unknown) >=320 (units (unkno wn) date) unknown) (unknown) (no (unknown) (unknown) >=4 (units (unkno wn) date) unknown) (unknown) (no (unknown) (unknown) >=8 (units (unkno wn) date) unknown) (unknown) (no (unknown) (unknown) <=0.12 (units (unkno wn) date) unknown) (unknown) (no (unknown) (unknown) <=0.25 (units (unkno wn) date) unknown) (unknown) (no (unknown) (unknown) <=0.5 (units (unkno wn) date) unknown) (unknown) (no (unknown) (unknown) <=1 (units (unkno wn) date) unknown) (unknown) (no (unknown) (unknown) <=2 (units (unkno wn) date) unknown) (unknown) (no (unknown) (unknown) <=4 (units (unkno wn) date) unknown) (unknown) (no (unknown) (unknown) 0.5 (units (unkno wn) date) unknown) (unknown) (no (unknown) (unknown) 1 (units (unkno wn) date) unknown) (unknown) (no (unknown) (unknown) 1+ (units (unkno wn) date) unknown) (unknown) (no (unknown) (unknown) 16 (units (unkno wn) date) unknown) (unknown) (no (unknown) (unknown) 2 (units (unkno wn) date) unknown) (unknown) (no (unknown) (unknown) 4 (units (unkno wn) date) unknown) (unknown) (no (unknown) (unknown) 8 (units (unkno wn) date) unknown) (unknown) (no (unknown) (unknown) Few poly WBCs (units ( unknown) date) unknown) (unknown) (no (unknown) (unknown) GenericComposite (units (unknown) date) [PROMIR^Proteus unknown) mirabilis] (unknown) (no (unknown) (unknown) GenericComposite (units (unknown) date) [STRFAE^Enterococ unknown) cus faecalis] (unknown) (no (unknown) (unknown) GenericComposite (units (unknown) date) [STRMO^Streptococ unknown) cus mitis/oralis] (unknown) (no (unknown) (unknown) Identification (units (unknown) date) and Sensitivity unknown) to Follow (unknown) (no (unknown) (unknown) LIGHT (units (unkno wn) date) unknown) (unknown) (no (unknown) (unknown) MODERATE (units (unkno wn) date) unknown) (unknown) (no (unknown) (unknown) No growth. (units (unk nown) date) unknown) (unknown) (no (unknown) (unknown) SYN-S (units (unkno wn) date) unknown) (unknown) (no (unknown) (unknown) Sensitivity to (units (unknown) date) Follow unknown) Result panel 45 (unknown) (no (unknown) (unknown) (no value) (units (unk nown) date) unknown) (unknown) (no (unknown) (unknown) (no value) (units (unk nown) date) unknown) (unknown) (no (unknown) (unknown) >=128 (units (unkno wn) date) unknown) (unknown) (no (unknown) (unknown) >=16 (units (unkno wn) date) unknown) (unknown) (no (unknown) (unknown) >=32 (units (unkno wn) date) unknown) (unknown) (no (unknown) (unknown) >=320 (units (unkno wn) date) unknown) (unknown) (no (unknown) (unknown) >=4 (units (unkno wn) date) unknown) (unknown) (no (unknown) (unknown) >=8 (units (unkno wn) date) unknown) (unknown) (no (unknown) (unknown) <=0.12 (units (unkno wn) date) unknown) (unknown) (no (unknown) (unknown) <=0.25 (units (unkno wn) date) unknown) (unknown) (no (unknown) (unknown) <=0.5 (units (unkno wn) date) unknown) (unknown) (no (unknown) (unknown) <=1 (units (unkno wn) date) unknown) (unknown) (no (unknown) (unknown) <=2 (units (unkno wn) date) unknown) (unknown) (no (unknown) (unknown) <=4 (units (unkno wn) date) unknown) (unknown) (no (unknown) (unknown) 0.5 (units (unkno wn) date) unknown) (unknown) (no (unknown) (unknown) 1 (units (unkno wn) date) unknown) (unknown) (no (unknown) (unknown) 1+ (units (unkno wn) date) unknown) (unknown) (no (unknown) (unknown) 16 (units (unkno wn) date) unknown) (unknown) (no (unknown) (unknown) 2 (units (unkno wn) date) unknown) (unknown) (no (unknown) (unknown) 4 (units (unkno wn) date) unknown) (unknown) (no (unknown) (unknown) 8 (units (unkno wn) date) unknown) (unknown) (no (unknown) (unknown) Few poly WBCs (units ( unknown) date) unknown) (unknown) (no (unknown) (unknown) GenericComposite (units (unknown) date) [PROMIR^Proteus unknown) mirabilis] (unknown) (no (unknown) (unknown) GenericComposite (units (unknown) date) [STRFAE^Enterococ unknown) cus faecalis] (unknown) (no (unknown) (unknown) GenericComposite (units (unknown) date) [STRMO^Streptococ unknown) cus mitis/oralis] (unknown) (no (unknown) (unknown) Identification (units (unknown) date) and Sensitivity unknown) to Follow (unknown) (no (unknown) (unknown) LIGHT (units (unkno wn) date) unknown) (unknown) (no (unknown) (unknown) MODERATE (units (unkno wn) date) unknown) (unknown) (no (unknown) (unknown) No growth. (units (unk nown) date) unknown) (unknown) (no (unknown) (unknown) SYN-S (units (unkno wn) date) unknown) (unknown) (no (unknown) (unknown) Sensitivity to (units (unknown) date) Follow unknown) Social History No information. Vital Signs No information.
== END 2021-08-20 21:05 | disposition expired ==
LOC: EDUNIT# → EDBD → ED 16:18
DX: I46.9 Cardiac arrest, cause unspecified (principal); I11.0 Hypertensive heart disease with heart failure; I50.9 Heart failure, unspecified; E11.9 Type 2 diabetes mellitus without complications; Z79.4 Long term (current) use of insulin
CPT/HCPCS: 92950; 99284